=== PATIENT | female | born 1975 | race African-American/Black ===

== ENCOUNTER 2020-01-10 11:37 | Inpatient (IN) ==
[2020-01-10] MEDS ORDERED: ONDANSETRON 4 MG/2 ML VIAL IV PRN (13:53)
[2020-01-10 14:14] LABS: Basophils % 0.4 % (0.0-0.8); Eosinophils % 0.1 % (0.00-10.9); Hemoglobin 14.5 GM/DL (12.0-16.0); Immature Granulocytes % 0.5 %; Immature Granulocytes Absolute 0.05 #; Lymphocytes # 2.3 10*3/uL (1.4-4.0); Lymphocytes % 21.4 % (21.3-54.2); Mean Corpuscular HGB Conc 32.2 GM/DL (32-36); Mean Corpuscular Volume 88.8 FL (87-102); Mean Platelet Volume 11.8 FL (9.6-12.0); Monocytes % 6.6 % (1.7-12.7); Platelet Count 170 T/CUMM (130-400); Red Blood Count 5.07 MC/CUMM (3.8-5.5); Red Cell Distribution Width 13.5 % (9.3-17.3); White Blood Count 10.7 T/CUMM (4-12)
[2020-01-10 14:25] LABS: Albumin 3.3 G/DL (3.4-5.0); Bilirubin,Total 0.6 MG/DL (0.2-1.0); Calcium 9.3 MG/DL (8.5-10.1); Osmolality,Calculated 263.7 MOS/KG (273-304); Total Protein 8.1 G/DL (6.4-8.3)
[2020-01-10] MEDS: SODIUM CHLORIDE 0.9% 1,000 ML IV SCH (15:00)
[2020-01-10 15:59] LABS: ABG Base Excess 4.8 MMOL/L (-2.5-2.5); ABG HCO3 28.7 MMOL/L (20-26); ABG Oxygen Saturation 95.1 % (95-100); ABG PCO2 37.8 MM HG (35-48); ABG PH 7.483 (7.35-7.45); ABG PO2 70.2 MM HG (80-95); ABG TCO2 24.1 MMOL/L (23-27)
[2020-01-10] MEDS: ENOXAPARIN 40 MG/0.4 ML SYRINGE SUBCUT SCH (16:04)
[2020-01-10] MEDS: PIPERACILLIN/TAZOBACTAM 3,375 MG in SODIUM CHLORIDE 0.9% 100 ML IV SCH (16:49)
[2020-01-10] MEDS: POTASSIUM CHLORIDE 20 MEQ TABLET PO PRN ×2 (16:50→23:48)
[2020-01-10] MEDS: ACETAMINOPHEN 325 MG TABLET PO PRN (18:35)
[2020-01-10] MEDS: guaiFENesin 200 MG/10 ML UDCUP PO PRN (18:38)
[2020-01-10 19:11] LABS: Band Neutrophils 3 % (0-10); Lymphocytes 11 % (20-55); Platelet Estimate Normal; Segmented Neutrophils 78 % (50-85); Total Cells Counted 100
[2020-01-10] MEDS: BENZONATATE 100 MG CAPSULE PO PRN (21:30)
[2020-01-11] MEDS: PIPERACILLIN/TAZOBACTAM 3,375 MG in SODIUM CHLORIDE 0.9% 100 ML IV SCH ×3 (00:41→16:31)
[2020-01-11] MEDS: SODIUM CHLORIDE 0.9% 1,000 ML IV SCH ×5 (00:41→20:22)
[2020-01-11 02:13] LABS: Apearance,Urine CLEAR (Clear); Bacteria,Urine Occasional /HPF (Few); Bilirubin,Urine Negative (Negative); Blood, Urine Negative (Negative); Glucose,Urine (UA) Negative (Negative); Ketones,Urine Negative (Negative); Mucus,Urine Occasional /LPF (Occasional); Nitrite,Urine Negative (Negative); Protein,Urine 30 MG/DL; RBC,Urine 1 /HPF (0-4); Squamous Epithelial Cell,Urine Occasional /HPF (0-10); Urine Color Amber (Yellow); Urine Urobilinogen < 2.0 EU/DL (0.2-1.0); WBC,Urine 6 /HPF (0-6)
[2020-01-11] MEDS: guaiFENesin 200 MG/10 ML UDCUP PO PRN (03:27)
[2020-01-11 04:40] LABS: ABG Base Excess 2.4 MMOL/L (-2.5-2.5); ABG HCO3 26.4 MMOL/L (20-26); ABG PCO2 38.9 MM HG (35-48); ABG PH 7.441 (7.35-7.45); ABG TCO2 22.6 MMOL/L (23-27); Allen Test Positive; Pt O2 Delivery Device Room Air
[2020-01-11] MEDS: ACETAMINOPHEN 325 MG TABLET PO PRN ×2 (04:55→16:33)
[2020-01-11 06:22] LABS: Basophils % 0.4 % (0.0-0.8); Eosinophils % 0.3 % (0.00-10.9); Hematocrit 41.9 VOL% (35.7-47.0); Hemoglobin 13.5 GM/DL (12.0-16.0); Immature Granulocytes % 0.4 %; Immature Granulocytes Absolute 0.04 #; Lymphocytes # 2.4 10*3/uL (1.4-4.0); Mean Corpuscular HGB Conc 32.2 GM/DL (32-36); Mean Corpuscular Volume 89.3 FL (87-102); Mean Platelet Volume 11.3 FL (9.6-12.0); Monocytes % 6.6 % (1.7-12.7); Neutrophils % 68.3 % (38.7-73.9); Platelet Count 168 T/CUMM (130-400); Red Blood Count 4.69 MC/CUMM (3.8-5.5); Red Cell Distribution Width 13.4 % (9.3-17.3)
[2020-01-11 06:34] LABS: Albumin 2.8 G/DL (3.4-5.0); Bilirubin,Total 0.5 MG/DL (0.2-1.0); Calcium 8.2 MG/DL (8.5-10.1); Osmolality,Calculated 272.8 MOS/KG (273-304); Total Protein 6.9 G/DL (6.4-8.3)
[2020-01-11] MEDS: SIMVASTATIN 20 MG TABLET PO SCH (08:00)
[2020-01-11 09:16] LABS: Band Neutrophils 1 % (0-10); Eosinophils 1 % (0-10); Hypochromasia Slight; Lymphocytes 13 % (20-55); Nucleated Red Blood Cells 1 (0-5); Segmented Neutrophils 84 % (50-85); Total Cells Counted 100
[2020-01-11 09:17] LABS: Anisocytosis Slight; Platelet Estimate Adequate; Polychromasia Slight
[2020-01-11] MEDS: ENOXAPARIN 40 MG/0.4 ML SYRINGE SUBCUT SCH ×2 (14:46→15:14)
[2020-01-11] MEDS: BENZONATATE 100 MG CAPSULE PO PRN (16:34)
[2020-01-12] MEDS: PIPERACILLIN/TAZOBACTAM 3,375 MG in SODIUM CHLORIDE 0.9% 100 ML IV SCH ×3 (00:07→15:25)
[2020-01-12] MEDS: BENZONATATE 100 MG CAPSULE PO PRN ×2 (00:08→09:30)
[2020-01-12] MEDS: SIMVASTATIN 20 MG TABLET PO SCH (09:30)
[2020-01-12] MEDS: SODIUM CHLORIDE 0.9% 1,000 ML IV SCH ×3 (09:30→15:25)
[2020-01-12] MEDS: ENOXAPARIN 40 MG/0.4 ML SYRINGE SUBCUT SCH (15:25)
[2020-01-13] MEDS: PIPERACILLIN/TAZOBACTAM 3,375 MG in SODIUM CHLORIDE 0.9% 100 ML IV SCH ×2 (00:20→07:59)
[2020-01-13] MEDS: ENOXAPARIN 40 MG/0.4 ML SYRINGE SUBCUT SCH (07:59)
[2020-01-13] MEDS: SIMVASTATIN 20 MG TABLET PO SCH (07:59)
[2020-01-13] MEDS: SODIUM CHLORIDE 0.9% 1,000 ML IV SCH (09:50)
[2020-01-13] MEDS ORDERED: AZITHROMYCIN 250 MG TABLET PO ONE (11:00)
[2020-01-13 13:05] VITALS: BP 126/78
[2020-01-14] MEDS ORDERED: AZITHROMYCIN 250 MG TABLET PO SCH (09:00)
== END 2020-01-13 15:44 | disposition home or self-care (01) | DRG 195 ==
LOC: N.CC 12:14 → SUATTDRO 12:14 → N.2E 01-11 16:27
PROVIDERS: ADMIT Internal Medicine; ATTEND Internal Medicine